=== PATIENT | male | born 1990 | race Asian ===

== ENCOUNTER 2025-09-14 17:31 | Emergency (ER) | payer OTHER ==
[~2025-09-14] VITALS: Ht 182.9 cm; Wt 79.0 kg
[2025-09-14 18:06] VITALS: O2SAT 99
[2025-09-14] MEDS ORDERED: POLY17PO3 MT (20:55)
[2025-09-14] MEDS ORDERED: DICY-18 MT (20:55)
[2025-09-14] MEDS ORDERED: SENN-139 MT (20:55)
[2025-09-14 21:13] VITALS: BP 135/80; PULSE 100; RESP 17; TEMP 37.5; O2SAT 99
== END 2025-09-14 21:27 | disposition home or self-care (01) ==
LOC: ER 17:31
DX: K59.00 Constipation, unspecified (principal); F41.9 Anxiety disorder, unspecified
CPT/HCPCS: 99283